=== PATIENT | female | born 1995 | race Caucasian/White ===

== ENCOUNTER 2016-05-20 01:40 | Emergency (ER) | payer BC ==
[~2016-05-20] VITALS: Ht 167.6 cm; Wt 67.8 kg
[2016-05-20 02:04] LABS: ADD MIUA? NO; BILIRUBIN NEGATIVE; BLOOD NEGATIVE; COLOR YELLOW ((YELLOW)); GLUCOSE (STRIP) NEGATIVE; KETONES NEGATIVE; LEUKOCYTES NEGATIVE; NITRITE NEGATIVE; PROTEIN (STRIP) NEGATIVE; SPECIFIC GRAVITY 1.015 (1.000-1.030); UCUL ADDED? NO; UROBILINOGEN 0.2 MG/DL (0.2-1.0)
[2016-05-20 02:30] LABS: HEMATOCRIT 37.6 % (36.0-46.0); MCH 30.4 PG (29.0-34.0); MCV 89.3 FL (83-99); MEAN PLAT.VOLUME 9.9 uM^3 (9.5-12.4); PLATELET COUNT 224 K/uL (156-360); RBC DIS.WIDTH-CV 12.8 % (11.8-14.6); RBC DIS.WIDTH-SD 40.9 % (39-53); RED BLOOD COUNT 4.21 M/uL (3.80-5.20); WHITE BLOOD COUNT 5.9 K/uL (4.1-10.2)
[2016-05-20 02:40] LABS: CHLORIDE 107 mEq/L (99-109); POTASSIUM 3.9 mEq/L (3.7-5.4); SODIUM 141 mEq/L (136-147)
[2016-05-20 02:42] LABS: GLUCOSE 98 mg/dL (70-99)
[2016-05-20 02:43] LABS: ANION GAP 8 MEQ/L (2-14)
[2016-05-20 02:44] LABS: TOTAL BILIRUBIN 0.2 mg/dL (0.0-1.0)
[2016-05-20 02:45] LABS: ALKALINE PHOSPHATASE 48 IU/L (3-129)
[2016-05-20 02:46] LABS: GFR ESTIMATE (CALCULATED) > 59 mL/min/
[2016-05-20 02:47] LABS: UREA NITROGEN (BUN) 9 mg/dL (9-23)
[2016-05-20 03:04] LABS: QUANTITATIVE HCG < 4.0 MIU/ML
[2016-05-20 03:20] LABS: LIPASE 31 U/L (1.0-51.0)
[2016-05-20] MEDS ORDERED: TRAMADOL HCL50 MG PO (03:59)
[2016-05-20 04:22] VITALS: BP 125/78
== END 2016-05-20 04:24 | disposition home or self-care (01) ==
LOC: EME 01:40
DX: R10.30 Lower abdominal pain, unspecified (principal); R10.2 Pelvic and perineal pain
CPT/HCPCS: 76856; 80053; 81003; 83690; 84702; 85027; 99281; 99283

== ENCOUNTER 2016-11-23 12:22 | Emergency (ER) | payer BC ==
[~2016-11-23] VITALS: Ht 167.6 cm; Wt 66.0 kg
[~2016-11-23 12:22] MED LIST: TRAMADOL HCL50 MG PO
[2016-11-23 13:53] LABS: HEMATOCRIT 41.7 % (36.0-46.0); MCH 29.9 PG (29.0-34.0); MCHC 33.6 G/DL (30.0-36.0); MCV 89.1 FL (83-99); MEAN PLAT.VOLUME 10.3 uM^3 (9.5-12.4); PLATELET COUNT 261 K/uL (156-360); RBC DIS.WIDTH-CV 12.2 % (11.8-14.6); RED BLOOD COUNT 4.68 M/uL (3.80-5.20); WHITE BLOOD COUNT 9.5 K/uL (4.1-10.2)
[2016-11-23 14:03] LABS: CHLORIDE 102 mEq/L (99-109); POTASSIUM 4.4 mEq/L (3.7-5.4); SODIUM 140 mEq/L (136-147)
[2016-11-23 14:05] LABS: GLUCOSE 104 mg/dL (70-99)
[2016-11-23 14:06] LABS: ANION GAP 13 MEQ/L (2-14)
[2016-11-23 14:09] LABS: GFR ESTIMATE (CALCULATED) > 59 mL/min/; UREA NITROGEN (BUN) 7 mg/dL (9-23)
[2016-11-23 14:50] LABS: QUANTITATIVE HCG < 4.0 MIU/ML
[2016-11-23] MEDS ORDERED: FLAGYL500 MG PO (17:03)
[2016-11-23] MEDS ORDERED: BENTYL10 MG PO (17:03)
[2016-11-23] MEDS ORDERED: CIPRO500 MG PO (17:03)
[2016-11-23 17:57] VITALS: BP 150/93
== END 2016-11-23 17:59 | disposition home or self-care (01) ==
LOC: EME 12:22
DX: K52.9 Noninfective gastroenteritis and colitis, unspecified (principal); K92.2 Gastrointestinal hemorrhage, unspecified
CPT/HCPCS: 74177; 80048; 81003; 84702; 85027; 86870; 86900; 86901; 86905; 99281; 99284

== ENCOUNTER → 2017-02-27 | Outpatient (CLI) | payer BC ==
[~2017-02-27] VITALS: Ht 167.6 cm; Wt 65.8 kg
[~2017-02-27] MED LIST changes: +BENTYL10 MG PO; +CIPRO500 MG PO; +FLAGYL500 MG PO; +IMITREX100 MG PO; +TRI-PREVIFEM1 EACH PO; +ZYRTEC10 M3 PO
== END | disposition home or self-care (01) ==
LOC: AMB 07:49
DX: K52.9 Noninfective gastroenteritis and colitis, unspecified (principal); Z88.2 Allergy status to sulfonamides
CPT/HCPCS: 88305; 88313